=== PATIENT | male | born 1945 | race Caucasian/White ===

== ENCOUNTER 2018-06-27 08:57 | Day surgery (SDC) | payer MEDICARE, BC ==
[~2018-06-27 08:57] MED LIST: Cefuroxime 10 MG/ML SYRINGE EYERT SCH; Lidocaine 1% PF 2 ML SDV INJECT SCH; Pilocarpine 4% Ophth Soln 15 ML Bot EYERT SCH
[2018-06-27] MEDS: Polymyxin B/Trimethoprim 10 ML Bottle EYERT SCH ×3 (09:50→11:45)
[2018-06-27] MEDS: Brimonidine 0.2% Ophth Soln 5 ML Bottle EYERT SCH ×3 (09:55→11:45)
[2018-06-27] MEDS: Phenylephrine 2.5% Ophth Soln 2 ML Bot EYERT SCH ×4 (10:00→11:27)
[2018-06-27] MEDS: Tropicamide 1% Ophth Soln 15 ML Bottle EYERT SCH ×4 (10:05→10:50)
--- NOTE | 2018-06-27 10:17 | PCM.PREANE ---
Preanesthetic Assessment - Procedure Proposed Procedure: cataract right - Anesthesia/Transfusion/Family Hx Anesthesia History: Prior Anesthesia Without Reaction Family History of Anesthesia Reaction: No Transfusion History: No Prior Transfusion(s) Intubation History: Unknown - Review of Systems General: No Symptoms Pulmonary: Shortness of Breath (usually) Cardiovascular: No Symptoms Gastrointestinal: No Symptoms Neurological: Tremors Other: Reports: Thyroid Problems - Physical Assessment NPO Status Date: 06/26/18 NPO Status Time: 21:30 O2 Sat by Pulse Oximetry: 93 Respiratory Rate: 16 Vital Signs: Last Vital Signs Temp 98.2 F 06/27/18 09:45 Pulse 67 06/27/18 09:45 Resp 16 06/27/18 09:45 BP 113/77 06/27/18 09:45 Pulse Ox 93 L 06/27/18 09:45 Height: 5 ft 10 in Weight: 74.843 kg ASA Class: 3 Mental Status: Alert & Oriented x3 Airway Class: Mallampati = 1 Dentition: Reports: Broken Tooth/Teeth, Missing Tooth/Teeth Thyro-Mental Finger Breadths: 3 Mouth Opening Finger Breadths: 3 ROM/Head Extension: Full Lungs: Clear to Auscultation, Normal Respiratory Effort Cardiovascular: Regular Rate, Regular Rhythm - Allergies Allergies/Adverse Reactions: Allergies Allergy/AdvReac Type Severity Reaction Status Date / Time No Known Allergies Allergy Verified 06/26/18 15:32 - Blood Blood Available: No - Acknowledgements Anesthesia Type Planned: MAC Pt an Appropriate Candidate for the Planned Anesthesia: Yes Alternatives and Risks of Anesthesia Discussed w Pt/Guardian: Yes Pt/Guardian Understands and Agrees with Anesthesia Plan: Yes PreAnesthesia Questionnaire HEENT History: Reports: Cataract Cardiovascular History: Reports: SOB on Exertion Respiratory History: Reports: Asthma Neurological History: Reports: Other (See Below) (parkinsons disease) - SUBSTANCE USE Smoking Status *Q: Never Smoker Tobacco Use Within Last Twelve Months: No Second Hand Smoke Exposure: No Days Per Week of Alcohol Use: 0 Recreational Drug Use History: No - HOME MEDS Home Medications: Home Meds Carbidopa/Levodopa [Carbidopa-Levo ER 25-100] 1 each PO BID 12/01/13 [History] Finasteride [Proscar] 5 mg PO DAILY 12/01/13 [History] Mirtazapine [Remeron] 15 mg PO BEDTIME 12/01/13 [History] Selegiline HCl [Eldepryl] 5 mg PO DAILY 12/01/13 [History] Albuterol Sulfate [Proair Hfa] 1 - 2 puff INH Q4H PRN 05/24/18 [History] Carbidopa/Levodopa [Carbidopa-Levo ER 25-100] 1.5 tab PO 1200 05/24/18 [History] Carbidopa/Levodopa [Carbidopa-Levo ER 50-200] 1 tab PO TID 05/24/18 [History] Docusate Sodium [Stool Softener] 100 mg PO DAILY 05/24/18 [History] Fluticasone Propionate [Flonase] 1 dose NASBOTH ASDIRECTED 05/24/18 [History] Levothyroxine 75 mcg PO DAILY 05/24/18 [History] Multivitamin [Gummi Bear Multivitamin] 1 tab PO DAILY 05/24/18 [History] Budesonide/Formoterol Fumarate [Symbicort 160-4.5 Mcg Inhaler] 1 puff INH DAILY 05/25/18 [History] - CURRENT (IN HOUSE) MEDS Current Meds: Current Medications Brimonidine Tartrate (Alphagan 0.2% Ophth Soln) 0 ml EYERT ASDIRECTED ALEXIA Stop: 06/27/18 18:00 Last Admin: 06/27/18 09:55 Dose: 1 drop Cefuroxime Sodium (Zinacef) 0 mg EYERT ASDIRECTED ALEXIA Stop: 06/27/18 18:00 Lidocaine HCl (Xylocaine-Mpf 1%) 0 ml INJECT ASDIRECTED ALEXIA Stop: 06/27/18 18:00 Phenylephrine HCl (Red-Synephrine 2.5% Ophth Soln) 0 ml EYERT ASDIRECTED ALEXIA Stop: 06/27/18 18:00 Last Admin: 06/27/18 10:00 Dose: 1 drop Pilocarpine HCl (Pilocar 4% Ophth Soln) 0 ml EYERT ASDIRECTED ALEXIA Stop: 06/27/18 18:00 Polymyxin/Trimethoprim Sulfate (Polytrim Ophth Soln) 0 ml EYERT ASDIRECTED ALEXIA Stop: 06/27/18 18:00 Last Admin: 06/27/18 09:50 Dose: 1 drop Tetracaine HCl (Tetracaine 0.5% Steri-Unit [place]) 0 ml EYERT ASDIRECTED ALEXIA Stop: 06/27/18 18:00 Tropicamide (Mydriacyl 1% Ophth Soln) 0 ml EYERT ASDIRECTED ALEXIA Stop: 06/27/18 18:00 Last Admin: 06/27/18 10:05 Dose: 1 drop
[2018-06-27] MEDS: Tetracaine HCl/PF 0.5% 4 ML Bottle EYERT SCH ×4 (11:04→11:35)
--- NOTE | 2018-06-27 11:50 | PCM48HPAN ---
Post Anesthesia Note - EVALUATION WITHIN 48HRS OF ANESTHETIC Vital Signs in Normal Range: Yes Patient Participated in Evaluation: Yes Respiratory Function Stable: Yes Airway Patent: Yes Cardiovascular Function Stable: Yes Hydration Status Stable: Yes Pain Control Satisfactory: Yes Nausea and Vomiting Control Satisfactory: Yes Mental Status Recovered: Yes Pulse Rate: 60 SaO2: 60 Resp Rate: 20 Blood Pressure: 123/77
== END 2018-06-27 12:18 | disposition home or self-care (01) ==
LOC: JD.SDS 08:57
PROVIDERS: ATTEND Ophthalmology
DX: H25.811 Combined forms of age-related cataract, right eye (principal); J45.909 Unspecified asthma, uncomplicated; E07.9 Disorder of thyroid, unspecified; F32.9 Major depressive disorder, single episode, unspecified; G20 Parkinson's disease; Z98.42 Cataract extraction status, left eye; Z96.1 Presence of intraocular lens; Z79.51 Long term (current) use of inhaled steroids; Z79.899 Other long term (current) drug therapy
CPT/HCPCS: 66984; A9270; J0697; C1780; J2001

== ENCOUNTER 2019-03-20 10:12 | Emergency (ER) | payer MEDICARE, BC ==
[2019-03-20] MEDS ORDERED: Sodium Chloride 0.9% 10 ML Syringe FLUSH PRN (11:32)
--- NOTE | 2019-03-20 11:39 | EDM.PDOC ---
ED HPI GENERAL MEDICAL PROBLEM - General Chief Complaint: Respiratory Problem Stated Complaint: SOB Time Seen by Provider: 03/20/19 10:58 Source of Information: Reports: Patient, RN Notes Reviewed History Limitations: Reports: No Limitations - History of Present Illness INITIAL COMMENTS - FREE TEXT/NARRATIVE: Patient is a 74-year-old male who presents to the ED with his for the evaluation of shortness of breath. The patient has a history of COPD, asthma, and Parkinson's disease. He does answer questions appropriately when asked, but most of the history is obtained per his . The states that over the last 2 weeks, the patient has been complaining of times where he "can't catch his air" about 4 times a day. The notes that he is had new onset shortness of breath it's been lasting around for 5 months now, but states that it really has gotten worse over the last 2 weeks. The denies any fevers cough or chills that the patient has had, he does not complain of any chest pain or nausea or vomiting or diarrhea, or pain anywhere else in his body. The patient is a , and [facility] - Related Data Allergies Allergy/AdvReac Type Severity Reaction Status Date / Time No Known Allergies Allergy Verified 03/20/19 10:22 Home Meds: Home Meds Finasteride [Proscar] 5 mg PO DAILY 12/01/13 [History] Albuterol Sulfate [Proair Hfa] 2 puff INH Q6HR PRN 05/24/18 [History] Carbidopa/Levodopa [Carbidopa-Levo ER 25-100] 1.5 tab PO QID 05/24/18 [History] Carbidopa/Levodopa [Carbidopa-Levo ER 50-200] 1 tab PO BID 05/24/18 [History] Docusate Sodium [Stool Softener] 100 mg PO BID 05/24/18 [History] Levothyroxine 50 mcg PO DAILY 05/24/18 [History] Multivitamin [Gummi Bear Multivitamin] 1 tab PO DAILY 05/24/18 [History] Albuterol [Proventil] 2.5 mg NEB Q6HR PRN 03/20/19 [History] Budesonide/Formoterol Fumarate [Symbicort 160-4.5 Mcg Inhaler] 2 puff INH BID [History] Cholecalciferol (Vitamin D3) [D3 Dots] 2,000 unit PO DAILY 03/20/19 [History] ClonazePAM [KlonoPIN] 0.5 mg PO BEDTIME PRN 03/20/19 [History] Entacapone [Comtan] 200 mg PO QID 03/20/19 [History] Montelukast [Singulair] 0 mg PO DAILY 03/20/19 [History] atorvaSTATin [Lipitor] 20 mg PO DAILY 03/20/19 [History] Past Medical History HEENT History: Reports: Cataract Cardiovascular History: Reports: SOB on Exertion Respiratory History: Reports: Asthma Neurological History: Reports: Other (See Below) (parkinsons disease) ED ROS GENERAL - Review of Systems Review Of Systems: See Below Constitutional: Denies: Fever, Chills, Malaise, Decreased Appetite HEENT: Reports: No Symptoms Respiratory: Reports: Shortness of Breath. Denies: Cough, Sputum Cardiovascular: Denies: Chest Pain, Dyspnea on Exertion, PND Endocrine: Reports: No Symptoms GI/Abdominal: Denies: Abdominal Pain, Constipation, Diarrhea, Nausea, Vomiting : Reports: No Symptoms Musculoskeletal: Reports: No Symptoms Skin: Reports: No Symptoms Neurological: Reports: Other (hx/ parkinsons) Psychiatric: Reports: No Symptoms Hematologic/Lymphatic: Reports: No Symptoms Immunologic: Reports: No Symptoms ED EXAM, GENERAL - Physical Exam Exam: See Below Exam Limited By: No Limitations General Appearance: Alert, WD/WN, No Apparent Distress Eye Exam: Bilateral Eye: EOMI, Normal Inspection, PERRL Throat/Mouth: Normal Inspection, Normal Lips, Normal Teeth, Normal Gums, Normal Oropharynx, Normal Voice, No Airway Compromise Head: Atraumatic, Normocephalic Neck: Normal Inspection, Supple Respiratory/Chest: No Respiratory Distress, Lungs Clear, No Accessory Muscle Use , Chest Non-Tender, Decreased Breath Sounds (diffuse bilaterally). No: Crackles , Rales, Rhonchi, Wheezing Cardiovascular: Normal Peripheral Pulses, Regular Rate, Rhythm, No Edema, No Murmur Peripheral Pulses: 3+: Radial (L), Radial (R) GI/Abdominal: Normal Bowel Sounds, Soft, Non-Tender, No Distention, No Mass Extremities: Normal Inspection, Normal Capillary Refill Neurological: Alert, Oriented, Normal Cognition, No Motor/Sensory Deficits Psychiatric: Normal Affect, Normal Mood Skin Exam: Warm, Dry, Intact, Normal Color, No Rash EKG INTERPRETATION EKG Date: 03/20/19 Time: 11:11 Rhythm: NSR Rate (Beats/Min): 64 [place]: LAD-Left [place] Deviation (-56) P-Wave: Present QRS: Normal ST-T: Normal QT: Normal Comparison: NA - No Prior EKG EKG Interpretation Comments: Reviewed with Dr. Clarke and by myself Course - Vital Signs Last Recorded V/S: Last Vital Signs Temp 98.2 F 03/20/19 10: Pulse 70 03/20/19 10:19 Resp 18 03/20/19 10:19 BP 129/82 03/20/19 10:19 Pulse Ox 97 03/20/19 13:13 - Orders/Labs/Meds Orders: Active Orders 24 hr Category Date Time Status EKG Documentation Completion [RC] STAT Care 03/20/19 11:01 Ordered Peripheral IV Care [RC] . DIRECTED Care 03/20/19 11:32 Ordered RT Aerosol Therapy [RC] ASDIRECTED Care 03/20/19 13:02 Ordered Sodium Chloride 0.9% [Saline Flush] Med 03/20/19 11:32 Ordered 10 ml FLUSH ASDIRECTED PRN Peripheral IV Insertion Adult [OM.PC] Stat Oth 03/20/19 11:32 Ordered Medication Orders Sodium Chloride (Saline Flush) 10 ml FLUSH ASDIRECTED PRN PRN Reason: Keep Vein Open Labs: Laboratory Tests 03/20/19 03/20/19 03/20/19 Range/Units 11:20 11:20 11:20 WBC 7.91 (4.23-9.07) K/mm3 RBC 4.40 L (4.63-6.08) M/mm3 Hgb 13.6 L (13.7-17.5) gm/dl Hct 40.6 (40.1-51.0) % MCV 92.3 H (79.0-92.2) fl MCH 30.9 (25.7-32.2) pg MCHC 33.5 (32.2-35.5) g/dl RDW Std Deviation 42.3 (35.1-43.9) fL Plt Count 272 (163-337) K/mm3 MPV 8.5 L (9.4-12.3) fl Neutrophils % (Manual) 67 H (40-60) % Band Neutrophils % 0 (0-10) % Lymphocytes % (Manual) 29 (20-40) % Atypical Lymphs % 0 % Monocytes % (Manual) 1 L (2-10) % Eosinophils % (Manual) 3 (0.8-7.0) % Basophils % (Manual) 0 L (0.2-1.2) Platelet Estimate Adequate Plt Morphology Comment Normal RBC Morph Comment Normal PT 10.9 (9.7-12.0) SECONDS INR 1.00 APTT 25 (22-31) SECONDS Sodium 140 (136-145) mEq/L Potassium 4.0 (3.5-5.1) mEq/L Chloride 106 (98-107) mEq/L Carbon Dioxide 26 (21-32) mEq/L Anion Gap 12.0 (5-15) BUN 17 (7-18) mg/dL Creatinine 0.7 (0.7-1.3) mg/dL Est Cr Clr Drug Dosing 93.99 mL/min Estimated GFR (MDRD) > 60 (>60) mL/min BUN/Creatinine Ratio 24.3 H (14-18) Glucose 90 (83-115) mg/dL Lactic Acid (0.4-2.0) mmol/L Calcium 8.4 L (8.5-10.1) mg/dL Total Bilirubin 0.4 (0.2-1.0) mg/dL AST 14 L (15-37) U/L ALT 8 L (16-63) U/L Alkaline Phosphatase 62 (46-116) U/L Troponin I < 0.017 (0.00-0.056) ng/mL NT-Pro-B Natriuret Pep (0-125) pg/mL Total Protein 6.3 L (6.4-8.2) g/dl Albumin 2.8 L (3.4-5.0) g/dl Globulin 3.5 gm/dL Albumin/Globulin Ratio 0.8 L (1-2) Urine Color (Yellow) Urine Appearance (Clear) Urine pH (5.0-8.0) Ur Specific [place] (1.005-1.030) Urine Protein (Negative) Urine Glucose (UA) (Negative) Urine Ketones (Negative) Urine Occult Blood (Negative) Urine Nitrite (Negative) Urine Bilirubin (Negative) Urine Urobilinogen (0.2-1.0) Ur Leukocyte Esterase (Negative) Urine RBC (0-5) /hpf Urine WBC (0-5) /hpf Ur Squamous Epith Cells (0-5) /hpf Urine Bacteria (FEW) /hpf Urine Mucus (FEW) /hpf 03/20/19 03/20/19 03/20/19 Range/Units 11:20 11:20 13:49 WBC (4.23-9.07) K/mm3 RBC (4.63-6.08) M/mm3 Hgb (13.7-17.5) gm/dl Hct (40.1-51.0) % MCV (79.0-92.2) fl MCH (25.7-32.2) pg MCHC (32.2-35.5) g/dl RDW Std Deviation (35.1-43.9) fL Plt Count (163-337) K/mm3 MPV (9.4-12.3) fl Neutrophils % (Manual) (40-60) % Band Neutrophils % (0-10) % Lymphocytes % (Manual) (20-40) % Atypical Lymphs % % Monocytes % (Manual) (2-10) % Eosinophils % (Manual) (0.8-7.0) % Basophils % (Manual) (0.2-1.2) Platelet Estimate Plt Morphology Comment RBC Morph Comment PT (9.7-12.0) SECONDS INR APTT (22-31) SECONDS Sodium (136-145) mEq/L Potassium (3.5-5.1) mEq/L Chloride (98-107) mEq/L Carbon Dioxide (21-32) mEq/L Anion Gap (5-15) BUN (7-18) mg/dL Creatinine (0.7-1.3) mg/dL Est Cr Clr Drug Dosing mL/min Estimated GFR (MDRD) (>60) mL/min BUN/Creatinine Ratio (14-18) Glucose (83-115) mg/dL Lactic Acid 0.7 (0.4-2.0) mmol/L Calcium (8.5-10.1) mg/dL Total Bilirubin (0.2-1.0) mg/dL AST (15-37) U/L ALT (16-63) U/L Alkaline Phosphatase (46-116) U/L Troponin I (0.00-0.056) ng/mL NT-Pro-B Natriuret Pep 374 H (0-125) pg/mL Total Protein (6.4-8.2) g/dl Albumin (3.4-5.0) g/dl Globulin gm/dL Albumin/Globulin Ratio (1-2) Urine Color Yellow (Yellow) Urine Appearance Clear (Clear) Urine pH 6.0 (5.0-8.0) Ur Specific [place] 1.025 (1.005-1.030) Urine Protein Negative (Negative) Urine Glucose (UA) Negative (Negative) Urine Ketones Negative (Negative) Urine Occult Blood Negative (Negative) Urine Nitrite Negative (Negative) Urine Bilirubin Negative (Negative) Urine Urobilinogen 0.2 (0.2-1.0) Ur Leukocyte Esterase Negative (Negative) Urine RBC Not seen (0-5) /hpf Urine WBC Not seen (0-5) /hpf Ur Squamous Epith Cells 0-5 (0-5) /hpf Urine Bacteria Not seen (FEW) /hpf Urine Mucus Not seen (FEW) /hpf Meds: Medications Generic Name Dose Route Start Last Admin Trade Name Freq PRN Reason Stop Dose Admin Sodium Chloride 10 ml 03/20/19 11:32 Saline Flush FLUSH ASDIRECTED PRN Keep Vein Open Discontinued Medications Generic Name Dose Route Start Last Admin Trade Name Freq PRN Reason Stop Dose Admin Albuterol 2.5 mg 03/20/19 13:02 03/20/19 13:13 Proventil Neb Soln NEB 03/20/19 13:03 2.5 mg ONETIME ONE Administration - Radiology Interpretation Free Text/Narrative:: Chest: Two views of the chest were obtained. Comparison: Prior chest x-ray of 12/01/13. Heart size is normal. Small hiatal hernia is noted. Scoliosis is noted within the spine. Lungs are clear with no acute parenchymal change. Impression: 1. Findings believed to be incidental as noted above. Nothing acute is appreciated. - Re-Assessments/Exams Free Text/Narrative Re-Assessment/Exam: 03/20/19 11:05 Patient presents to the ED for the evaluation of episodic shortness of breath. I did order a EKG, chest x-ray, CBC, CMP, PT/INR, PTT, lactic acid, BNP, troponin, urinalysis, and IV to be placed. The patient did not have a fever upon initial triage, but when I did examine him, he does feel warm to the touch , I suspect that he might have a fever. 03/20/19 13:04 Labs are back, and there is no sign of a bacterial infection by CBC, metabolic panel is within normal limits, troponin is negative, BNP is mildly elevated at 374, chest x-ray does not show any sign of pulmonary congestion or infiltrate. Urine is still unclear at this time. I did order an albuterol nebulizer for further management, as he takes albuterol 4 times daily. 03/20/19 14:31 Urine is clean, no sign of a bacterial infection. At this time there is no acute infective processes that would be causing him to have increased shortness of breath, his BNP again was just mildly elevated, but this should not be causing these symptoms. We'll have him follow-up with his primary care physician, as the was wondering if this was due to his worsening Parkinson' s. Departure - Departure Time of Disposition: 14:32 Disposition: Home, Self-Care 01 Condition: Fair Clinical Impression: Dyspnea Qualifiers: Dyspnea type: shortness of breath Qualified Code(s): R06.02 - Shortness of breath - Discharge Information *PRESCRIPTION DRUG MONITORING PROGRAM REVIEWED*: No *COPY OF PRESCRIPTION DRUG MONITORING REPORT IN PATIENT NANCY: No Instructions: Shortness of Breath, Adult, [id number] Referrals: Laya Griffith MD [Primary Care Provider] - Forms: ED Department Discharge Additional Instructions: You were evaluated in the ER today for your episodic shortness of breath. At this ER visit, your laboratory evaluation was within normal limits, there is no sign of a pneumonia by x-ray or by lab standards. Please take Symbicort 2 times daily as directed, as this a maintenance medication, he should not take this more often than that. The albuterol nebulizer may be taken every 4 hours for feelings of shortness of breath. Your marker for heart failure was just mildly elevated, which suggests that you may have a little bit of extra fluid on the lungs or heart, you are not on any sort of water pill upon review of your med list, you may benefit from starting one of these medications, your primary care provider should start this for you. Recommend that you obtain an appointment with them, for further evaluation and possible medication changes. Please return to the ED if your symptoms should change or worsen. - My Orders Last 24 Hours: My Active Orders 03/20/19 11:01 EKG Documentation Completion [RC] STAT 03/20/19 11:32 Peripheral IV Care [RC] . DIRECTED Sodium Chloride 0.9% [Saline Flush] 10 ml FLUSH ASDIRECTED PRN Peripheral IV Insertion Adult [OM.PC] Stat 03/20/19 13:02 RT Aerosol Therapy [RC] ASDIRECTED - Assessment/Plan Last 24 Hours: My Active Orders 03/20/19 11:01 EKG Documentation Completion [RC] STAT 03/20/19 11:32 Peripheral IV Care [RC] . DIRECTED Sodium Chloride 0.9% [Saline Flush] 10 ml FLUSH ASDIRECTED PRN Peripheral IV Insertion Adult [OM.PC] Stat 03/20/19 13:02 RT Aerosol Therapy [RC] ASDIRECTED
[2019-03-20] MEDS ORDERED: Albuterol 0.083% 2.5 MG/3 ML Neb Soln NEB ONE (13:02)
--- NOTE | 2019-03-20 13:06 | CR ---
Chest: Two views of the chest were obtained. Comparison: Prior chest x-ray of 12/01/13. Heart size is normal. Small hiatal hernia is noted. Scoliosis is noted within the spine. Lungs are clear with no acute parenchymal change. Impression: 1. Findings believed to be incidental as noted above. Nothing acute is appreciated. Diagnostic code #2
== END 2019-03-20 15:08 | disposition home or self-care (01) ==
LOC: JD.ED 10:12
DX: R06.02 Shortness of breath (principal); J44.9 Chronic obstructive pulmonary disease, unspecified; G20 Parkinson's disease; Z79.51 Long term (current) use of inhaled steroids
CPT/HCPCS: 36415; 71046; 71046-26; 80053; 81001; 83605; 83880; 84484; 85007; 85027; 85610; 85730; 93005; 93010; 94640; 99284; 99285-25

== ENCOUNTER 2024-06-04 13:37 | Inpatient (IN) | payer OTHER ==
[2024-06-04 14:28] LABS: HEMATOCRIT 43.7 % (42.0-52.0); HEMOGLOBIN 14.1 gm/dl (14.0-18.0); MEAN CORPUSCULAR HEMOGLOBIN 30.9 pg (28.0-32.0); MEAN CORPUSCULAR HGB CONC 32.3 g/dl (32.0-36.0); MEAN CORPUSCULAR VOLUME 95.8 fl (83.0-99.0); MEAN PLATELET VOLUME 8.6 fl (9.4-12.4); PLATELET COUNT,PLT 221 K/mm3 (150-400); RED BLOOD CELL COUNT 4.56 M/mm3 (4.52-5.90); WHITE BLOOD CELL COUNT,WBC 12.56 K/mm3 (3.9-11.3)
[2024-06-04 14:38] LABS: INR 1.04
[2024-06-04 14:43] LABS: A/G RATIO 0.9 (1-2); ALBUMIN 3.2 g/dl (3.4-5.0); ANION GAP 13.4 (5-15); BILIRUBIN TOTAL 0.7 mg/dL (0.2-1.0); BUN/CREATININE RATIO 23.6 (14-18); C-REACTIVE PROTEIN 0.81 mg/dL (<0.30); CALCIUM 8.8 mg/dL (8.5-10.1); CREATININE 1.1 mg/dL (0.7-1.3); EST CRCL DRUG DOSING (CG) 53.26 mL/min; POTASSIUM,K 3.4 mEq/L (3.5-5.1); PROTEIN TOTAL,TP 6.8 g/dl (6.4-8.2)
[2024-06-04 14:46] LABS: LACTIC ACID 1.3 mmol/L (0.4-2.0)
[2024-06-04 15:20] LABS: BAND PERCENT MAN 1 % (0-10); BASOPHILS PERCENT MAN 0 (0.2-1.2); EOSINOPHILS PERCENT MAN 0 % (0.8-7.0); LYMPHOCYTES % ATYPICAL MANUAL 0 %; LYMPHOCYTES PERCENT MAN 7 % (20-40); MONOCYTES PERCENT MAN 5 % (2-10); TOXIC GRANULATION FEW
[2024-06-04 15:21] LABS: PLATELET COUNT ESTIMATE ADEQUATE
[2024-06-04] MEDS: Sodium Chloride 0.9% 1,000 ML IV ONE (15:57)
[2024-06-04] MEDS: cefTRIAXone 2 GM in Sodium Chloride 0.9% 100 ML IV ONE (16:05)
[2024-06-04] MEDS: LORazepam 2 MG/ML SDV IVPUSH ONE (16:07)
[2024-06-04] MEDS: Sodium Chloride 0.9% 10 ML Syringe FLUSH PRN (16:09)
[2024-06-04] MEDS: Iopamidol 755 Mg/ML 100 ML Bottle IVPUSH ONE (16:36)
[2024-06-04] MEDS: Sodium Chloride 0.9% 100 ML IV SCH (16:36)
[2024-06-04 16:38] LABS: APPEARANCE,URINE CLOUDY (Clear); BILIRUBIN,URINE NEGATIVE (Negative); COLOR,URINE AMBER (Yellow); GLUCOSE,URINE NEGATIVE (Negative); KETONES,URINE NEGATIVE (Negative); LEUKOCYTE ESTERASE,URINE 1+ (Negative); NITRITE,URINE POSITIVE (Negative); OCCULT BLOOD,URINE 3+ (Negative); PH,URINE 5.5 (5.0-8.0); PROTEIN,URINE 2+ (Negative); UROBILINOGEN,URINE 0.2 (0.2-1.0)
[2024-06-04 16:41] LABS: BACTERIA,URINE MANY /hpf (FEW); MUCUS,URINE FEW /hpf (FEW); RBC,URINE >100 /hpf (0-5); SQUAMOUS EPITHELIAL CELLS,UR 0-5 /hpf (0-5); WBC,URINE 50-75 /hpf (0-5)
[2024-06-04] MEDS: Acetaminophen 325 MG Tab PO ONE (17:03)
[2024-06-04] MEDS ORDERED: Acetaminophen 325 MG Tab PO PRN (17:45)
[2024-06-04 20:00] LABS: TSH 1.376 uIU/mL (0.358-3.74)
[2024-06-04] MEDS: Albuterol 0.5% 2.5 MG/0.5 ML Neb Soln INH SCH (20:15)
[2024-06-04] MEDS: Amantadine 100 MG Cap PO SCH (20:36)
[2024-06-04] MEDS: QUEtiapine 25 MG Tab PO SCH (20:36)
[2024-06-04] MEDS: Carbidopa/Levodopa 25-100 MG Tab PO SCH (21:59)
[2024-06-05 05:26] LABS: A/G RATIO 0.8 (1-2); ALBUMIN 2.5 g/dl (3.4-5.0); ANION GAP 13.3 (5-15); BILIRUBIN TOTAL 0.6 mg/dL (0.2-1.0); BUN/CREATININE RATIO 21.3 (14-18); CALCIUM 8.1 mg/dL (8.5-10.1); CREATININE 0.8 mg/dL (0.7-1.3); EST CRCL DRUG DOSING (CG) 68.16 mL/min; POTASSIUM,K 3.3 mEq/L (3.5-5.1); PROTEIN TOTAL,TP 5.7 g/dl (6.4-8.2)
[2024-06-05] MEDS: Sodium Chloride 0.9% 1,000 ML IV SCH (05:35)
[2024-06-05 05:47] LABS: BASOPHILS PERCENT AUTO 0.2 % (0.0-1.0); EOSINOPHILS ABSOLUTE AUTO 0.2 K/mm3 (0.0-0.4); EOSINOPHILS PERCENT AUTO 1.9 % (0.0-6.0); HEMATOCRIT 36.4 % (42.0-52.0); IMMATURE GRAN ABSOLUTE AUTO 0.05 K/mm3 (0.00-0.05); IMMATURE GRAN PERCENT AUTO 0.5 % (0.0-0.4); LYMPHOCYTES PERCENT AUTO 10.2 % (24.0-44.0); MEAN CORPUSCULAR HEMOGLOBIN 31.4 pg (28.0-32.0); MEAN CORPUSCULAR HGB CONC 33.5 g/dl (32.0-36.0); MEAN CORPUSCULAR VOLUME 93.6 fl (83.0-99.0); MONOCYTES ABSOLUTE AUTO 0.6 K/mm3 (0.0-0.8); MONOCYTES PERCENT AUTO 6.2 % (0.0-8.0); NEUTROPHILS ABSOLUTE AUTO 7.8 K/mm3 (1.8-7.7); PLATELET COUNT,PLT 173 K/mm3 (150-400); RED BLOOD CELL COUNT 3.89 M/mm3 (4.52-5.90); WHITE BLOOD CELL COUNT,WBC 9.65 K/mm3 (3.9-11.3)
[2024-06-05 05:53] LABS: HEMOGLOBIN 12.2 gm/dl (14.0-18.0)
[2024-06-05] MEDS: Carbidopa/Levodopa 25-100 MG Tab.ER PO SCH (08:17)
[2024-06-05] MEDS: Enoxaparin 40 MG/0.4 ML Syringe SUBCUT SCH (08:17)
[2024-06-05] MEDS: Docusate Sodium 100 MG Cap PO SCH (08:17)
[2024-06-05] MEDS: Finasteride 5 MG Tab PO SCH (08:17)
[2024-06-05] MEDS: Tamsulosin 0.4 MG Cap.ER PO SCH (08:17)
[2024-06-05] MEDS: Potassium Chloride 20 MEQ Tab.ER PO ONE (08:17)
[2024-06-05] MEDS: Sodium Chloride 0.9% 1,000 ML IV ONE (08:20)
[2024-06-05] MEDS: Formoterol/Mometasone 200-5 MCG 8.8 GM Inhaler INH SCH (09:05)
[2024-06-05] MEDS: Albuterol 0.083% 2.5 MG/3 ML Neb Soln NEB SCH (09:05)
[2024-06-05] MEDS: Sodium Chloride 0.9% 500 ML IV ONE (10:17)
[2024-06-05] MEDS ORDERED: Albuterol 0.083% 2.5 MG/3 ML Neb Soln NEB PRN (13:32)
[2024-06-05] MEDS: cefTRIAXone 1 GM Vial IVPUSH SCH (15:14)
[2024-06-05] MEDS ORDERED: cefTRIAXone 1 GM in Sodium Chloride 0.9% 50 ML IV SCH (16:00)
[2024-06-05] MEDS: atorvaSTATin 20 MG Tab PO SCH (21:23)
[2024-06-06] MEDS: Levothyroxine 50 MCG Tab PO SCH (05:48)
[2024-06-06 06:05] LABS: BASOPHILS PERCENT AUTO 0.5 % (0.0-1.0); EOSINOPHILS ABSOLUTE AUTO 0.3 K/mm3 (0.0-0.4); EOSINOPHILS PERCENT AUTO 4.5 % (0.0-6.0); HEMATOCRIT 38.9 % (42.0-52.0); HEMOGLOBIN 12.9 gm/dl (14.0-18.0); IMMATURE GRAN PERCENT AUTO 1.3 % (0.0-0.4); LYMPHOCYTES ABSOLUTE AUTO 0.9 K/mm3 (1.0-4.8); LYMPHOCYTES PERCENT AUTO 12.2 % (24.0-44.0); MEAN CORPUSCULAR HEMOGLOBIN 30.9 pg (28.0-32.0); MEAN CORPUSCULAR HGB CONC 33.2 g/dl (32.0-36.0); MEAN CORPUSCULAR VOLUME 93.1 fl (83.0-99.0); MEAN PLATELET VOLUME 8.8 fl (9.4-12.4); MONOCYTES ABSOLUTE AUTO 0.7 K/mm3 (0.0-0.8); MONOCYTES PERCENT AUTO 9.3 % (0.0-8.0); NEUTROPHILS ABSOLUTE AUTO 5.5 K/mm3 (1.8-7.7); NEUTROPHILS PERCENT AUTO 72.2 % (41.0-71.0); PLATELET COUNT,PLT 180 K/mm3 (150-400); RED BLOOD CELL COUNT 4.18 M/mm3 (4.52-5.90)
[2024-06-06 06:17] LABS: A/G RATIO 0.7 (1-2); ALBUMIN 2.5 g/dl (3.4-5.0); BILIRUBIN TOTAL 0.4 mg/dL (0.2-1.0); C-REACTIVE PROTEIN 9.3 mg/dL (<0.30); CALCIUM 8.4 mg/dL (8.5-10.1); CREATININE 0.8 mg/dL (0.7-1.3); EST CRCL DRUG DOSING (CG) 73.72 mL/min; PROTEIN TOTAL,TP 5.9 g/dl (6.4-8.2)
[2024-06-06] MEDS: SELEGILINE HCL 5 MG PO SCH (16:37)
[2024-06-07 05:39] LABS: BASOPHILS PERCENT AUTO 0.5 % (0.0-1.0); EOSINOPHILS ABSOLUTE AUTO 0.3 K/mm3 (0.0-0.4); EOSINOPHILS PERCENT AUTO 3.6 % (0.0-6.0); HEMATOCRIT 40.8 % (42.0-52.0); HEMOGLOBIN 13.8 gm/dl (14.0-18.0); IMMATURE GRAN ABSOLUTE AUTO 0.09 K/mm3 (0.00-0.05); IMMATURE GRAN PERCENT AUTO 1.2 % (0.0-0.4); LYMPHOCYTES ABSOLUTE AUTO 1.2 K/mm3 (1.0-4.8); LYMPHOCYTES PERCENT AUTO 15.6 % (24.0-44.0); MEAN CORPUSCULAR HEMOGLOBIN 31.1 pg (28.0-32.0); MEAN CORPUSCULAR HGB CONC 33.8 g/dl (32.0-36.0); MEAN CORPUSCULAR VOLUME 91.9 fl (83.0-99.0); MEAN PLATELET VOLUME 8.9 fl (9.4-12.4); MONOCYTES ABSOLUTE AUTO 0.8 K/mm3 (0.0-0.8); MONOCYTES PERCENT AUTO 9.9 % (0.0-8.0); NEUTROPHILS ABSOLUTE AUTO 5.2 K/mm3 (1.8-7.7); NEUTROPHILS PERCENT AUTO 69.2 % (41.0-71.0); PLATELET COUNT,PLT 197 K/mm3 (150-400); RED BLOOD CELL COUNT 4.44 M/mm3 (4.52-5.90); WHITE BLOOD CELL COUNT,WBC 7.57 K/mm3 (3.9-11.3)
[2024-06-07 06:18] LABS: A/G RATIO 0.7 (1-2); ALBUMIN 2.7 g/dl (3.4-5.0); ANION GAP 13.8 (5-15); BILIRUBIN TOTAL 0.5 mg/dL (0.2-1.0); BUN/CREATININE RATIO 18.8 (14-18); C-REACTIVE PROTEIN 6.12 mg/dL (<0.30); CALCIUM 8.8 mg/dL (8.5-10.1); CREATININE 0.8 mg/dL (0.7-1.3); EST CRCL DRUG DOSING (CG) 73.72 mL/min; POTASSIUM,K 3.8 mEq/L (3.5-5.1); PROTEIN TOTAL,TP 6.5 g/dl (6.4-8.2)
== END 2024-06-07 15:12 | disposition home or self-care (01) | DRG 698 ==
LOC: JD.ED 13:37 → JD.MS 17:40
PROVIDERS: ADMIT Family Medicine; ATTEND Family Medicine
PROC: 0T2BX0Z Change Drainage Device in Bladder, External Approach (ICD-10-PCS; principal; 2024-06-04)
PROC: 3E03329 Introduction of Other Anti-infective into Peripheral Vein, Percutaneous Approach (ICD-10-PCS; 2024-06-04)
DX: T83.511A Infection and inflammatory reaction due to indwelling urethral catheter, initial encounter (principal); A41.4 Sepsis due to anaerobes; G92.8 Other toxic encephalopathy; R65.20 Severe sepsis without septic shock; Z96.0 Presence of urogenital implants; N39.0 Urinary tract infection, site not specified; Z79.890 Hormone replacement therapy; R33.9 Retention of urine, unspecified; G20.A1 Parkinson's disease without dyskinesia, without mention of fluctuations; J45.909 Unspecified asthma, uncomplicated; R31.9 Hematuria, unspecified; N40.0 Benign prostatic hyperplasia without lower urinary tract symptoms; R29.6 Repeated falls; E78.5 Hyperlipidemia, unspecified; E03.9 Hypothyroidism, unspecified; I95.9 Hypotension, unspecified; Z99.3 Dependence on wheelchair; Z79.51 Long term (current) use of inhaled steroids; Z79.899 Other long term (current) drug therapy; Y84.6 Urinary catheterization as the cause of abnormal reaction of the patient, or of later complication, without mention of misadventure at the time of the procedure
CPT/HCPCS: 36415; 51702; 71045; 71045-26; 71275; 71275-26; 74177; 74177-26; 80053; 81001; 83605; 84443; 84484; 85007; 85025; 85027; 85610; 86140; 86850; 86900; 86901; 87040; 87086; 87088; 87186; 87428-QW; 94640; 94760; 94761; 96361; 96374; 96375; 97110-GP; 97116-GP; 97161-GP; 97530-GP; 99223; 99232; 99233; 99239; 99284; 99285-25; A9270-GY; J0696; J1650; J2060; J7030; J7620-GY; Q9967

== ENCOUNTER 2024-08-24 17:34 | Emergency (ER) | payer OTHER ==
[2024-08-24] MEDS: Lidocaine 1% 10 ML MDV INJECT ONE (19:58)
[2024-08-24] MEDS: Lidocaine/Epineph/Tetracaine 3 ML Syringe TOP ONE (19:58)
== END 2024-08-24 21:30 | disposition home or self-care (01) ==
LOC: JD.ED 17:34
DX: S01.81XA Laceration without foreign body of other part of head, initial encounter (principal); J45.909 Unspecified asthma, uncomplicated; E03.9 Hypothyroidism, unspecified; Z79.899 Other long term (current) drug therapy; Z79.51 Long term (current) use of inhaled steroids; Z79.890 Hormone replacement therapy; W01.198A Fall on same level from slipping, tripping and stumbling with subsequent striking against other object, initial encounter; Y93.89 Activity, other specified
CPT/HCPCS: 12013; 70450; 70450-26; 99283; A9270-GY; J2003